=== PATIENT | male | born 2005 | race Caucasian/White ===

== ENCOUNTER 2025-01-17 20:36 | Emergency (ER) | payer MEDICAID, SELFPAY ==
[2025-01-17 20:38] VITALS: BP 118/83; PULSE 78; RESP 16; TEMP 36.9; O2SAT 99; BMI 27.8
--- NOTE | 2025-01-17 21:12 | RAD_ITS ---
PROCEDURE: TOE(S) MIN 2 VIEWS 01/17/2025 REASON FOR EXAM: PAIN TECHNIQUE: TOE(S) MIN 2 VIEWS COMPARISON: None FINDINGS: No displaced fracture or traumatic malalignment. Fusion of the middle and distal phalanges of the 5th toe. Joint spaces are otherwise maintained. Bone mineral density is subjectively normal. The soft tissues are unremarkable. RAD/Toe(s) Min 2 Views IMPRESSION: No displaced fracture. Reading Location: [facility]
--- NOTE | 2025-01-17 23:16 | EDS_ITS ---
HPI History of Present Illness Chief Complaint: Lower Extremity Injury Informant: patient Narrative Narrative: Healthy 19-year-old male states he was swimming in a pool and accidentally injure his left second toe. He states he is not sure what he did to injure it but he knows he was in the pool and swimming. He is able to walk and denies any other pain or injuries. Denies any bleeding or wounds. [facility] Medical History Schizo affective schizophrenia Depression Anxiety Allergy/AdvReac Type Severity Reaction Status Date / Time No Known Allergies Allergy Verified 01/17/25 20:37 Surgical History (Updated 01/17/25 @ 20:39 by Fabby Pressley) History of dental surgery Social History Smoking Status: Never smoker ROS ROS ED Constitutional Constitutional ED: Denies chills or fever(s) Musculoskeletal Musculoskeletal: Reports extremity pain; Denies neck pain Integumentary Denies Abrasions, rash or wounds Neurologic Neurologic: Denies paresthesias or weakness EXAM Physical Exam Const Vital Signs: 01/17/25 20:38 Temperature 98.5 F Temperature Source Temporal Pulse Rate 78 Respiratory Rate 16 Blood Pressure 118/83 H Blood Pressure Mean 94 Pulse Ox 99 Positive well nourished and well developed General Appearance ED: well developed and NAD Neck full ROM and supple Back/Spine normal ROM and normal to inspection Extremity full ROM Extremity Narrative: Left foot is normal in appearance. There is no apparent obvious injury. With regards to the second toe, there is no swelling or ecchymosis. He has pain when I band the PIPJ, and tenderness at both the middle and proximal phalanxes, but he does not have tenderness at the joint in between them. No tenderness at the MTPJ. No tenderness elsewhere throughout the toes or foot. No nail damage or subungual hematoma. Neuro oriented x3, no focal motor deficits and no sensory deficits noted Sensorium / Orientation: alert Psych mental status grossly normal and thought process normal Skin no wounds Rashes: no rashes MDM MDM MDM Narrative Medical decision making narrative: 2 view x-ray series of the left second toe on my interpretation is unremarkable. It is conceivable that there could be a nondisplaced fracture through the distal aspect of the proximal phalanx, but he really is not tender in his particular part of the toe. If it is present it is nondisplaced. Radiology called and negative. Patient is reassured, the treatment would be the same right now, which is supportive care. I am having nurses give him some ibuprofen and santos tape his toes, he was offered a postop shoe but declined and states santos taping should be fine. 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 Radiography Diagnostic Testing: Clinical Impression(s) from Imaging Studies Toe X-Ray 01/17/25 21:12 IMPRESSION: No displaced fracture. Reading Location: [id number] Discharge Plan Triage Chief Complaint: Lower Extremity Injury ED Provider: Jose Mckeon Dx/Rx/DC Orders Clinical Impression: Contusion of second toe, left Instructions: ED Finger or Toe Contusion Primary Care Provider: Care Physician,No Primary Referrals: your clinical immunologist [Other] - 10-14 Days if not better Activity Restrictions/Additional Instructions: Santos tape your toes together to help with stabilization and pain. Ice as needed. Make sure you put a piece of small gauze in between the toes that you are taping together, and give them a rest at night to prevent breakdown of the skin and change the gauze for the next taping. Print Language: [place] Disposition Disposition: Home, Self Care
[2025-01-17 23:41] VITALS: BP 118/83; PULSE 70; RESP 16; TEMP 36.9; O2SAT 99
[2025-01-17] MEDS: Ibuprofen 600 MG Tablet PO (23:50)
== END 2025-01-17 23:50 | disposition home or self-care (01) ==
PROVIDERS: Emergency Provider Emergency Medicine; Visit Provider Emergency Medicine
DX: S90.122A Contusion of left lesser toe(s) without damage to nail, initial encounter (principal); Y93.11 Activity, swimming
CPT/HCPCS: 73660; 99282